=== PATIENT | female | born 1980 | race Caucasian/White ===

== ENCOUNTER → 2017-06-18 | Outpatient (CLI) | payer BC ==
--- NOTE | 2017-06-19 12:11 | EKG ---
Date Performed: 06/18/2017 Time Performed: 13:19:39 PTAGE: 36 years EKG: Sinus rhythm WITH SHORT IN INTERVAL BORDERLINE ECG NO PREVIOUS TRACING DOCTOR: Luis Leslie Interpretating Date/Time 06/19/2017 12:11:19
== END ==
LOC: CPRE 13:02
PROVIDERS: ATTEND Obstetrics & Gynecology
DX: Z01.810 Encounter for preprocedural cardiovascular examination (principal); N84.0 Polyp of corpus uteri; D39.10 Neoplasm of uncertain behavior of unspecified ovary
CPT/HCPCS: 93005

== ENCOUNTER 2017-06-20 12:17 | Observation (INO) | payer BC ==
--- NOTE | 2017-06-19 17:32 | MH ---
cc: JASWANT ARIZA DATE OF 1980 DATE OF ADMISSION 06/20/2017 ADMITTING DIAGNOSIS: Right adnexal mass with pelvic pain and endometrial polyp. HISTORY OF THE PRESENT ILLNESS The patient is a 46-year-old single white female para 0, LMP of 05/27/2017 who developed a menstrual cycle in April, had some lower abdominal cramping, discomfort more on the right than the left. She saw Dr. Yanez. Ultrasound showed a normal size uterus with apparent endometrial polyp. The right ovary is enlarged. A 7.6 cm cystic mass with smooth borders and a well-defined back wall. The left ovary had a small 1.9 cm cyst. She was seen by me on 06/11/2017. She had CA-125 and OVA 1 testing on 06/13/2017 that returned low risk. She is now admitted for surgical evaluation. PAST MEDICAL AND SURGICAL HISTORY Previous surgery is none. MEDICATIONS None. ALLERGIES None. TRANSFUSIONS None. SOCIAL HISTORY She is single. She is employed by [employer]. Alcohol occasional. Tobacco none. Drugs none. FAMILY HISTORY Noncontributory. PHYSICAL EXAMINATION GENERAL: This is a well-nourished, well-developed, white female. VITAL SIGNS: Stable. HEENT: Examination is normal. CHEST: Clear. HEART: Regular rate. BREASTS: Symmetrical. ABDOMEN: Benign. PELVIC: Vagina is normal. Cervix normal. Uterus reveals normal size, shape, anterior. Right adnexa is cystic and mobile. ASSESSMENT As above. PLAN She is now admitted for hysteroscopy, dilation and curettage, laparoscopy, possible right salpingo-oophorectomy, possible cystectomy. While in the office I explained the procedures, the risks and benefits and complications including but limited to , infection, bleeding and possible need for later surgery was explained and accepted. MD CRYSTAL Arriola/VICKI /5:09 PM /5:16 PM REJI
[~2017-06-20] VITALS: Ht 167.6 cm; Wt 50.7 kg
[~2017-06-20 12:17] MED LIST: KETOROLAC TROMETHAMINE 60 MG/2 ML (IM) VIAL IM ONE; LACTATED RINGER'S 1000 ML INJ 1,000 ML IV ONE; NEOSTIGMINE METHYLSULFATE 10 MG/10 ML VIAL IV PUSH ONE; ONDANSETRON HCL 4 MG/2 ML VIAL IV PUSH ONE; PROPOFOL 200 MG/20 ML AMP IV ONE
[2017-06-20] MEDS ORDERED: INSULIN HUMAN REGULAR 1,000 UNITS/10 ML VIAL SQ PRN (12:45)
[2017-06-20] MEDS ORDERED: SODIUM CHLORID 0.9% 500 ML IV PRN (12:45)
[2017-06-20] MEDS ORDERED: LACTATED RINGER'S 1000 ML IV PRN (12:45)
[2017-06-20] MEDS ORDERED: METOPROLOL TARTRATE 25 MG TAB PO PRN (12:45)
[2017-06-20] MEDS ORDERED: ACETAMINOPHEN 1000 MG/100 ML VIAL IV ONE (12:45)
[2017-06-20] MEDS ORDERED: POVIDONE IODINE 5% (ANTISEPSIS KIT) 4 APPLICATIONS EACH NARE PRN (12:45)
[2017-06-20] MEDS ORDERED: ceFAZolin 1,000 MG/NS 100 ML IV SCH ×2 (12:45)
[2017-06-20] MEDS ORDERED: CHLORHEXIDINE GLUCONATE 2 % 1 PACK (2 CLOTHS) TOPICAL PRN (12:45)
[2017-06-20 12:58] VITALS: BP 117/77; PULSE 71; RESP 16; TEMP 98.9; O2SAT 100
[2017-06-20] MEDS ORDERED: APREPITANT 40 MG CAP ONE (14:14)
[2017-06-20] MEDS ORDERED: DEXAMETHASONE SOD PHOS 4 MG/ML VIAL ONE (14:40)
[2017-06-20] MEDS ORDERED: MIDAZOLAM HCL 2 MG/2 ML VIAL ONE (14:40)
[2017-06-20] MEDS ORDERED: fentaNYL CITRATE 250 MCG/5 ML AMP ONE ×2 (14:55→16:59)
[2017-06-20] MEDS: KETOROLAC TROMETHAMINE 30 MG/ML (IVP) VIAL IVP SCH ×2 (16:00→23:25)
[2017-06-20] MEDS ORDERED: SODIUM CHLORIDE 0.9% FLUSH 5 ML FLUSH FLUSH PRN (16:15)
[2017-06-20] MEDS ORDERED: ZOLPIDEM TARTRATE 5 MG TAB PO PRN (16:15)
[2017-06-20] MEDS ORDERED: diphenhydrAMINE HCL 25 MG CAP PO PRN (16:15)
[2017-06-20] MEDS ORDERED: ONDANSETRON ODT 4 MG TAB PO PRN (16:15)
[2017-06-20] MEDS ORDERED: ONDANSETRON HCL 4 MG/2 ML VIAL IV PRN (16:15)
[2017-06-20] MEDS ORDERED: PROMETHAZINE INJ 25 MG/ML VIAL IM PRN (16:15)
[2017-06-20] MEDS ORDERED: HYDROmorphone HCL PF 1 MG/ML VIAL IV PRN (16:15)
[2017-06-20] MEDS ORDERED: D5-1/2 NS + KCL 20 MEQ INJ 1,000 ML ONE (16:26)
[2017-06-20] MEDS ORDERED: *MEPERIDINE 25 MG INJ VIAL PERIprocedural Use ONLY ONE (16:49)
[2017-06-20] MEDS: D5-1/2 NS + KCL 20 MEQ INJ 1,000 ML IV SCH ×2 (17:00→23:25)
[2017-06-20] MEDS ORDERED: *morphine SULFATE 8 MG/ML PERIprocedure ONLY ONE ×2 (17:13→17:28)
[2017-06-20] MEDS ORDERED: ONDANSETRON INJ 8 MG in DEXTROSE 5% IN WATER INJ 50 ML IV PRN ×2 (17:15)
[2017-06-20 17:36] LABS: HEMATOCRIT 39.3 % (35.0-46.0); REVIEW FLAG FINAL
[2017-06-20 19:30] VITALS: BP 96/62; PULSE 70; RESP 18; TEMP 97.1; O2SAT 96
[2017-06-20] MEDS: DOCUSATE SODIUM 100 MG CAP PO SCH (21:35)
[2017-06-20] MEDS: SODIUM CHLORIDE 0.9% FLUSH 5 ML FLUSH FLUSH SCH (21:36)
[2017-06-20] MEDS: ACETAMINOPHEN 1000 MG/100 ML VIAL IV SCH (21:40)
[2017-06-20] MEDS: PROMETHAZINE HCL 25 MG TAB PO PRN (21:50)
[2017-06-21] VITALS: BP 110/65; PULSE 69; RESP 18; TEMP 96.4; O2SAT 99
[2017-06-21 04:00] VITALS: BP 98/55; PULSE 66; RESP 17; TEMP 97.2; O2SAT 100
[2017-06-21] MEDS: ACETAMINOPHEN 1000 MG/100 ML VIAL IV SCH (05:32)
[2017-06-21] MEDS: KETOROLAC TROMETHAMINE 30 MG/ML (IVP) VIAL IVP SCH (05:32)
[2017-06-21] MEDS: DOCUSATE SODIUM 100 MG CAP PO SCH (05:33)
[2017-06-21 08:00] VITALS: BP 101/67; PULSE 66; RESP 16; TEMP 98.6; O2SAT 100
[2017-06-21 08:42] LABS: AUTOMATED NEUTROPHIL # 13.3 TH/MM3 (1.8-7.7); BASOPHIL % 0.1 % (0.0-2.0); HEMATOCRIT 37.8 % (35.0-46.0); HEMO FLAGS DIFF FINAL; LYMPHOCYTE # 0.9 TH/MM3 (1.0-4.8); MEAN CELL VOLUME 92.5 FL (80.0-100.0); MEAN CORPUSCULAR HEMOGLOBIN 31.3 PG (27.0-34.0); MEAN CORPUSCULAR HGB CONC 33.9 % (32.0-36.0); MONO % 6.6 % (0.0-8.0); NEUT % 87.3 % (16.0-70.0); PLATELET COUNT 191 TH/MM3 (150-450); RED BLOOD COUNT 4.08 MIL/MM3 (4.00-5.30); RED CELL DISTRIBUTION WIDTH 12.8 % (11.6-17.2); WHITE BLOOD COUNT 15.2 TH/MM3 (4.0-11.0)
[2017-06-21] MEDS: SODIUM CHLORIDE 0.9% FLUSH 5 ML FLUSH FLUSH SCH (09:00)
[2017-06-21] MEDS: D5-1/2 NS + KCL 20 MEQ INJ 1,000 ML IV SCH (09:00)
[2017-06-21 09:10] LABS: POTASSIUM 4.2 MEQ/L (3.5-5.1)
[2017-06-21] MEDS: PROMETHAZINE HCL 25 MG TAB PO PRN (09:13)
[2017-06-21 10:40] VITALS: O2SAT 98
--- NOTE | 2017-06-21 11:46 | MP ---
cc: JASWANT MCKENNA DATE OF SURGERY 06/20/17 PREOPERATIVE DIAGNOSIS Right ovarian mass, endometrial polyp. POSTOPERATIVE DIAGNOSIS Right ovarian mass, endometrial polyp. PROCEDURE Hysteroscopy, D&C, laparoscopy with a right salpingo-oophorectomy. ANESTHESIA General ET SURGEON Juliette Mckenna MD PRESSURE SUPERVISOR Anuradha Ruiz ESTIMATED BLOOD LOSS Less than 25 mL FLUIDS 1 liter crystalloid. OBJECTIVE FINDINGS Following induction of adequate general endotracheal anesthesia, the patient was prepped and draped supine on the operating table dorsal lithotomy position in sterile fashion with the bladder being drained by Mae catheterization. Exam under anesthesia revealed a normal size shape anterior uterus with a mobile right adnexal mass about 8 cm. The cervix exposed with hand held retractors. The anterior lip of the cervix grasped with single tooth tenaculum. Cervix and uterus sounded to 8 cm. Cervix dilated with a #16 Hanks dilator. The scope was passed, revealed normal cervix, endometrial polyp. Scope was withdrawn. Endocervical were obtained with a small serrated curette, polyps with polyp forceps, and endometrium with a small sharp curette. The scope was passed again. The endometrial cavity was clean . Surgeon's gloves were changed. The abdomen opened through 3 cm curving infraumbilical incision using a knife to cut down through the skin to the fascia. Fascia opened transversely stripped from the muscles. Rectus muscle split in the midline and the peritoneum opened sharply without incident. The mini GelPort was placed. Laparoscope was inserted. A 5 port placed in left lower quadrant and an Airseal in R lower quadrant. There was an 8 cm mobile mass encompassing the whole right ovary, left ovary was normal, tubes normal. There was one implant of endometriosis in left uterosacral, anterior cul-de-sac was clear. Appendix was normal, liver edge was normal. Washing collected. Harmonic scalpel was used take the right ovarian vessels, right mesosalpinx and the right utero-ovarian pedicle. The pouch was then used to hold the tube and the ovary which was then exteriorized. An 18 gauge needle was used to decompress the cyst inside the pouch collecting 60 cc of fluid for study. then the ovary was removed intact through the pouch with the pouch with no spillage. Inspection now performed. There was no bleeding. Ureters were inspected with good peristalsis. Low-pressure test was done, there was no bleeding. The operative site was coated with Evoseal. GelPort was now removed and the peritoneum sutured with a running 2-0 Vicryl. The fascia with a running locking stitch of 0 Vicryl corner to midline and tied. The peritoneum closed with running 3-0 Vicryl and skin with running subcuticular 3-0 Monocryl. The scope was now reinserted through the lower port site to check the GelPort site which was well closed. No entrapment of tissue. There was no bleeding. Scope was now removed, gas allowed to escape, small port sutured with 3-0 Monocryl subcuticular. Dermabond applied. All counts correct and the patient was awaken and taken to recovery room in good condition. MD CRYSTAL Arriola/ /4:15 PM /11:31 AM REJI
== END 2017-06-21 11:55 | disposition home or self-care (01) ==
LOC: HSDC 12:17 → EDUNIT# 14:45 → HSDI 16:14 → HOCA 19:32
PROVIDERS: ADMIT Obstetrics & Gynecology; ATTEND Obstetrics & Gynecology
PROC: 0UDB8ZX Extraction of Endometrium, Via Natural or Artificial Opening Endoscopic, Diagnostic (ICD-10-PCS; principal; 2017-06-21)
PROC: 0UT04ZZ Resection of Right Ovary, Percutaneous Endoscopic Approach (ICD-10-PCS; 2017-06-21)
PROC: 0UT54ZZ Resection of Right Fallopian Tube, Percutaneous Endoscopic Approach (ICD-10-PCS; 2017-06-21)
DX: D27.0 Benign neoplasm of right ovary (principal); N84.0 Polyp of corpus uteri
CPT/HCPCS: 00840; 58558; 58661; 80048; 85014; 85018; 85025; 88112; 88305; 88307; 94150; 96374; 96375; 96376; G0378; J0131; J0690; J1100; J1885; J2175; J2250; J2270; J2405; J2710; J3010; J3480; J7120; J8501; Q0169